=== PATIENT | female | born 1980 | race Caucasian/White ===

== ENCOUNTER 2021-01-22 02:55 | Emergency (ER) | payer OTHER ==
[~2021-01-22 02:55] MED LIST: CELEXA40 MG PO; HUMULIN N100 UNIT/1 SC; HUMULIN R100 UNIT/1 SC; HUMULIN R100 UNITS/ SC; PRENATAL 19 TA1 EACH PO; ZOFRAN ODT 4 MG4 MG SL
[2021-01-22 03:52] LABS: HEMOGLOBIN 15.9 gm/dl (12.3-15.3); RED BLOOD COUNT 5.15 M/UL (4.00-5.10); WHITE BLOOD COUNT 17.8 K/UL (4.5-11.0)
[2021-01-22 04:47] LABS: BUN/CREATININE RATIO 20 (0-10)
[2021-01-22] MEDS ORDERED: ZOFRAN 4 MG TAB4 MG PO (07:41)
[2021-01-22] MEDS ORDERED: OMNICEF 300 MG300 MG PO (09:17)
== END 2021-01-22 08:03 | disposition home or self-care (01) ==
LOC: ER1 02:55
PROVIDERS: Physician Assistant
DX: R07.89 Other chest pain (principal); E86.0 Dehydration; R10.13 Epigastric pain; R19.7 Diarrhea, unspecified; R11.2 Nausea with vomiting, unspecified; E11.9 Type 2 diabetes mellitus without complications; E78.5 Hyperlipidemia, unspecified; Z88.2 Allergy status to sulfonamides; F17.290 Nicotine dependence, other tobacco product, uncomplicated
CPT/HCPCS: 71045; 80053; 81001; 82550; 82553; 83690; 83874; 84484; 84703; 85025; 87081; 87880; 93005; 96374; 96375; 99284; C9113; J1885; J2405; J7030; Q9967